=== PATIENT | female | born 1980 | race Caucasian/White ===

== ENCOUNTER → 2022-04-15 | Outpatient (CLI) | payer BC, SELFPAY ==
--- NOTE | 2022-04-15 | LES_PTH ---
PATIENT: IRMA PRESTON LOC: [facility] U#:[id number] AGE/SX: 41/F ROOM: RE04/15/[address]: Dr. Irma Butler DO : 1980 BED: DIS: 04/15/2022 SPEC #: [id number] RECD: 04/15/22 10:42 STATUS: CARLA KITCHENKellen #: [id number] YENI: 04/15/22 00:[address]: Irma Butler DEPT: SURGICAL PATHOLOGY RECD BY: Sandy Bridges ENTERED: 04/15/22 12:39 SP TYPE: Lesion OTHR DR: Dr. Elio Angel MD Tissues: Uterine cervix, NOS Procedures: Surgery Specimen Level IV HEADER OPERATION: Cervical lesion removal PRE-OP DIAGNOSIS: Cervical lesion TISSUE SUBMITTED: Cervical lesion MICROSCOPIC DIAGNOSIS Cervical lesion, biopsy: Fragments of benign endocervical epithelium, blood and mucous. Scant fragment of benign endometrial epithelium. See comment. GO:[email or web address] 04/16/2022 COMMENT Clinical correlation and appropriate follow up are necessary. MICROSCOPIC DESCRIPTION Slides are reviewed. GROSS DESCRIPTION Received is one container labeled with the patient's name and not further designated. The specimen consists of multiple fragments of hemorrhagic mucoid tissue that in aggregate measure 2.0 x 1.0 x 0.1 cm. The specimen is totally submitted in one cassette. / GO:[email or web address] 04/15/2022 TC:5 CPT: 25188
[2022-04-23 17:19] LABS: HPV APTIMA, High Risk Negative (Negative)
== END | disposition home or self-care (01) ==
LOC: LABSPEC 10:58
PROVIDERS: PCP Family Medicine; Referring Provider Obstetrics & Gynecology; Visit Provider Obstetrics & Gynecology
DX: Z12.4 Encounter for screening for malignant neoplasm of cervix (principal); N89.8 Other specified noninflammatory disorders of vagina
CPT/HCPCS: 87624; 88175; 88305; G0145

== ENCOUNTER → 2022-04-22 | Outpatient (CLI) | payer BC, SELFPAY ==
--- NOTE | 2022-04-22 16:00 | BI_ITS ---
MAMMOGRAPHY - BILATERAL SCREENING REASON FOR EXAM: Female, 41 years old. Routine annual screening examination. PERTINENT HISTORY: Grandmother with breast cancer. TECHNIQUE: Digital bilateral breast missy (3D mammographic acquisition) in the CC and MLO projections. 2-D mediolateral oblique (MLO) and craniocaudad (CC) views of both breasts were obtained. CAD: Full Field Digital Mammography with Computer Added Detection was performed. COMPARISON: None. Baseline examination. FINDINGS: Breast Composition: There are scattered areas of fibroglandular density. There are no dominant masses or suspicious calcifications. No other significant abnormalities are identified. BI/SCRN MAMM (CAD)W/MISSY BILAT IMPRESSION: Negative screening mammogram. Yearly followup mammogram recommended. (A) ASSESSMENT CATEGORY: BIRADS Category 1: Negative. A letter regarding these results will be sent to the patient by the facility within 30 days. Approximately 10% of breast cancers are not detected by mammography. A normal mammogram should not delay biopsy of a clinically suspicious abnormality. [id number] Electronically Signed: Best Astudillo MD at 16:54 EST ,
--- NOTE | 2022-04-22 16:19 | US_ITS ---
EXAM: US PELVIS TRANSABDOMINAL AND TRANSVAGINAL, COMPLETE CLINICAL INDICATION: pelvic pain -- lt side pain TECHNIQUE: Transabdominal and transvaginal pelvic ultrasound was performed with grayscale and color Doppler imaging. Transvaginal imaging was used for better evaluation of the endometrium and adnexa. This report was created using [employer] report generation technology. COMPARISON: None. FINDINGS: UTERUS/CERVIX: Uterus measures 11.0 x 6.8 x 4.3 cm with endometrial complex thickness measuring 6 lesion. No uterine masses. Nabothian cysts are identified. Anteverted. RIGHT OVARY: Blood flow is demonstrated both ovaries. There is a 1.5 cm cyst involving the right ovary. The right ovary measures 2.6 x 2.1 x 1.8 cm. There is a 1.3 cm cyst involving the left ovary. Left ovary measures 3.5 x 2.5 x 1.5 cm. LEFT OVARY: See above. FREE FLUID: None. BLADDER: Unremarkable as visualized. Wall is normal thickness for degree of distention. US/Pelvic w/ Transvaginal IMPRESSION: No significant abnormality. No findings to explain left-sided pain. Electronically Signed: Shiva Jean Baptiste MD at 3:54 EST ,
== END | disposition home or self-care (01) ==
PROVIDERS: PCP Nurse Practitioner Family; Visit Provider Obstetrics & Gynecology
DX: Z12.31 Encounter for screening mammogram for malignant neoplasm of breast (principal); R10.2 Pelvic and perineal pain
CPT/HCPCS: 76830; 76856; 77063; 77067

== ENCOUNTER → 2024-07-24 | Outpatient (CLI) | payer OTHER, SELFPAY ==
--- NOTE | 2024-07-24 13:00 | BI_ITS ---
EXAM: SCRN MAMM (CAD)W/MISSY BILAT DATE: 07/24/2024 CLINICAL HISTORY: F, Age 43 y/o , SCREEN FOR BREATS CANCER Grandmother with breast cancer. BREAST CANCER RISK ASSESSMENT: Not assessed. TECHNIQUE: Bilateral screening digital breast tomosynthesis with 2D and 3D images. Computer aided detection. COMPARISON: Prior exam(s) dated April 22, 2022.. FINDINGS: TISSUE DENSITY: The breast tissue is composed of scattered area of fibroglandular density. Bilateral Breast Mammographic Findings: No significant masses, calcifications or other abnormalities are identified. No suspicious masses, areas of developing architectural distortion, or suspicious calcifications. There has been no significant interval change. BI/SCRN MAMM (CAD)W/MISSY BILAT IMPRESSION: OVERALL FINAL ASSESSMENT: BIRADS 1 NEGATIVE RECOMMENDATION: Routine annual follow-up in 1 Year A letter with findings and recommendations will be mailed to the patient. Reading Location: [place] [id number]
== END | disposition home or self-care (01) ==
LOC: OPBI 12:56
PROVIDERS: PCP Nurse Practitioner Family; Referring Provider Obstetrics & Gynecology; Visit Provider Obstetrics & Gynecology
DX: Z12.31 Encounter for screening mammogram for malignant neoplasm of breast (principal)
CPT/HCPCS: 77063; 77067